=== PATIENT | male | born 1980 ===

== ENCOUNTER 2023-01-28 11:15 | Inpatient (IN) | payer OTHER ==
[~2023-01-28] VITALS: Ht 170.2 cm; Wt 81.6 kg
[2023-02-15] MEDS ORDERED: LIPITOR20 MG PO (13:26)
[2023-02-27 08:29] LABS: HEMATOCRIT 39.8 % (39.0-48.0); HEMOGLOBIN 13.6 g/dL (13-16.00); MEAN CELL VOLUME 83.9 fL (80.0-100.00); MEAN CORPUSCULAR HEMOGLOBIN 28.6 pg (27.00-32.0); MEAN CORPUSCULAR HGB CONC 34.1 g/dl (32.0-36.0); PLATELET COUNT 292 K/uL (150-450); RED BLOOD COUNT 4.75 M/uL (4.00-6.00); RED CELL DISTRIBUTION WIDTH 13.7 % (11.5-14.5)
[2023-02-27 08:34] LABS: ALBUMIN 3.3 gm/dL (3.4-5.0); CREATININE SERUM 0.84 mg/dL (0.70-1.30); GFR 99.26; MAGNESIUM 2.1 mg/dL (1.8-2.4); PHOSPHOROUS 3.5 mg/dL (2.5-4.9); POTASSIUM 3.94 mEq/L (3.5-5.1)
[2023-03-01] MEDS ORDERED: HYOSCYAMINE0.125 M1 SL (19:34)
[2023-03-01] MEDS ORDERED: GABAPENTIN300 M2 PO (19:34)
[2023-03-01] MEDS ORDERED: TYLENOL ARTHRI650 MG PO (19:35)
[2023-03-01] MEDS ORDERED: OXYCODONE HCL5 MG PO (19:36)
== END 2023-03-01 20:18 | disposition home or self-care (01) | DRG 331 ==
LOC: O/R 02-26 05:15 → SURH 02-26 11:00
PROVIDERS: ADMIT Surgery; ATTEND Surgery
PROC: 0DBP4ZZ Excision of Rectum, Percutaneous Endoscopic Approach (ICD-10-PCS; 2023-02-26)
PROC: 07BC4ZX Excision of Pelvis Lymphatic, Percutaneous Endoscopic Approach, Diagnostic (ICD-10-PCS; 2023-02-26)
PROC: 0DNW4ZZ Release Peritoneum, Percutaneous Endoscopic Approach (ICD-10-PCS; 2023-02-26)
PROC: 4A1BXSH Monitoring of Gastrointestinal Vascular Perfusion using Indocyanine Green Dye, External Approach (ICD-10-PCS; 2023-02-26)
PROC: 8E0Y4CZ Robotic Assisted Procedure of Lower Extremity, Percutaneous Endoscopic Approach (ICD-10-PCS; 2023-02-26)
PROC: 0DTN4ZZ Resection of Sigmoid Colon, Percutaneous Endoscopic Approach (ICD-10-PCS; principal; 2023-02-26 15:00)
DX: D12.5 Benign neoplasm of sigmoid colon (principal); K57.30 Diverticulosis of large intestine without perforation or abscess without bleeding
CPT/HCPCS: 44207; 38570; 44213; S2900